=== PATIENT | male | born 1965 | race Caucasian/White ===

== ENCOUNTER 2018-11-19 19:41 | Observation (INO) | payer OTHER ==
[~2018-11-19] VITALS: Ht 180.3 cm; Wt 79.4 kg
[~2018-11-19 19:41] MED LIST: LITH300C PO; LITH300ER PO; LORA2 PO
[2018-11-19 21:10] LABS: BASOPHILS ABSOLUTE AUTO 0.09 K/mm3 (0.00-0.23); BASOPHILS PERCENT AUTO 1 % (0-2); EOSINOPHILS ABSOLUTE AUTO 0.14 K/mm3 (0.00-0.68); EOSINOPHILS PERCENT AUTO 1 % (0-6); Hematocrit 46.7 % (37.0-53.0); Hemoglobin 15.6 g/dL (13.5-17.5); IMMATURE GRAN ABSOLUTE AUTO 0.04 K/mm3 (0.00-0.10); IMMATURE GRAN PERCENT AUTO 0 % (0-1); LYMPHOCYTES PERCENT AUTO 24 % (21-46); MONOCYTES ABSOLUTE AUTO 1.03 K/mm3 (0.16-1.47); MONOCYTES PERCENT AUTO 10 % (4-13); Mean Corpuscular HGB 30.5 pg (26.0-34.0); Mean Corpuscular HGB Conc 33.4 g/dL (31.5-36.5); Mean Corpuscular Volume 91 fL (80-100); Mean Platelet Volume 10.7 fL (9.1-12.4); NEUTROPHILS ABSOLUTE AUTO 6.87 K/mm3 (1.96-9.15); NEUTROPHILS PERCENT AUTO 64 % (41-73); Platelet Count 231 K/mm3 (150-400); RDW Coefficient Variation 12.3 % (11.7-14.2); RDW Standard Deviation 41.4 fL (35.1-46.3); Red Blood Cell Count 5.12 M/mm3 (4.30-5.90); White Blood Cell Count 10.77 K/mm3 (4.00-11.30)
[2018-11-19 21:13] LABS: Source, Urine Voided
[2018-11-19 21:16] LABS: Bilirubin, Urine Neg (Neg); Blood, Urine Neg (Neg); Glucose Qualitative, Urine Neg (Neg); Ketones, Urine 1+ (Neg); Leukocyte Esterase, Urine 1+ (Neg); Nitrite, Urine Neg (Neg); Protein, Urine Neg (Neg); Specific Gravity, Urine 1.025 (1.003-1.022); Urobilinogen, Urine 1+ (Normal)
[2018-11-19 21:18] LABS: Appearance, Urine Clear (Clear); Color, Urine Yellow (P-Yellow)
[2018-11-19 21:21] LABS: Red Blood Cells, Urine 0-2 /hpf (0-2)
[2018-11-19 21:22] LABS: Bacteria Many /hpf; Mucus Light (0-Heavy); Squamous Epithelial Cells Not Seen /hpf (Few)
[2018-11-19 21:27] LABS: Alanine Aminotransfer (ALT/SGP 36 U/L (12-78); Albumin, Blood 3.7 g/dL (3.4-5.0); Albumin/Globulin Ratio 1.1 (0.8-1.8); Alk Phos 99 U/L (50-136); Anion Gap 6 mmol/L (6-16); Aspartate Aminotrans (AST/SGOT 19 U/L (12-37); Bilirubin, Total 0.3 mg/dL (0.1-1.0); Blood Urea Nitrogen 17 mg/dL (8-24); CO2, Blood 28 mmol/L (21-32); Calcium, Blood 8.3 mg/dL (8.5-10.1); Chloride, Blood 105 mmol/L (98-108); Creatinine, Blood 0.89 mg/dL (0.60-1.20); Globulin, Blood 3.4 g/dL (2.2-4.0); Glomerular Filtration Rate >60 (60-); Glucose, Blood 82 mg/dL (70-99); Potassium, Blood 3.6 mmol/L (3.5-5.5); Salicylate 3.2 mg/dL (2.8-20.0); Sodium, Blood 139 mmol/L (136-145); Total Protein, Blood 7.1 g/dL (6.4-8.2)
[2018-11-19 21:33] LABS: Acetaminophen, Random <2.0 ug/mL (10.0-30.0); Ethanol (Alcohol), Blood, Med <3 mg/dL; Thyroid Stimulating Hormone 0.904 uIU/mL (0.360-4.800)
[2018-11-19 21:39] LABS: U Amphetamine Screen Not Detected; U Barbituate Screen Not Detected; U Benzodiazapine Screen Not Detected; U Buprenorphine Screen Not Detected; U Cannabinoids Screen DETECTED; U Cocaine Screen Not Detected; U Methadone Screen Not Detected; U Methamphetamine Screen Not Detected; U Opiates Screen Not Detected; U Oxycodone Screen Not Detected; U Phencyclidine Screen Not Detected; U Propoxyphene Screen Not Detected
== END 2018-11-20 04:26 | disposition home or self-care (01) ==
LOC: ER 19:41 → EOR 19:42
PROVIDERS: ADMIT Emergency Medicine
DX: R45.851 Suicidal ideations (principal); F32.89 Other specified depressive episodes; F17.210 Nicotine dependence, cigarettes, uncomplicated; F12.10 Cannabis abuse, uncomplicated; F10.10 Alcohol abuse, uncomplicated; Z59.0 Homelessness; Z79.899 Other long term (current) drug therapy
CPT/HCPCS: 36415; 71046; 80053; 81001; 84443; 85025; 87086; 87147; 93005; 93010; 99285-25; G0378; G0480; Q3014

== ENCOUNTER 2019-03-19 22:57 | Emergency (ER) | payer OTHER ==
[~2019-03-19] VITALS: Ht 177.8 cm; Wt 78.9 kg
[2019-03-20] MEDS ORDERED: Cleocin HCl150 MG PO (00:05)
[2019-03-21] MEDS ORDERED: ONDA4ODT MM (13:49)
[2019-03-21] MEDS ORDERED: Florastor250 MG PO (13:49)
[2019-03-21] MEDS ORDERED: ACET325 PO (13:49)
[2019-03-21] MEDS ORDERED: CLIN300 PO (13:49)
== END 2019-03-20 01:34 | disposition home or self-care (01) ==
LOC: ER 22:57
DX: L02.416 Cutaneous abscess of left lower limb (principal); L03.116 Cellulitis of left lower limb; F17.200 Nicotine dependence, unspecified, uncomplicated
CPT/HCPCS: 96365; 99282-25

== ENCOUNTER 2019-03-27 00:41 | Emergency (ER) | payer OTHER ==
[~2019-03-27] VITALS: Ht 177.8 cm; Wt 74.8 kg
[~2019-03-27 00:41] MED LIST changes: +ACET325 PO; +CLIN300 PO; +Cleocin HCl150 MG PO; +Florastor250 MG PO; +ONDA4ODT MM
== END 2019-03-27 03:01 | disposition home or self-care (01) ==
LOC: ER 00:41
DX: S69.92XA Unspecified injury of left wrist, hand and finger(s), initial encounter (principal); F17.200 Nicotine dependence, unspecified, uncomplicated; X58.XXXA Exposure to other specified factors, initial encounter
CPT/HCPCS: 73140

== ENCOUNTER 2019-06-09 12:41 | Emergency (ER) | payer OTHER ==
[~2019-06-09] VITALS: Ht 177.8 cm; Wt 81.7 kg
[2019-06-09] MEDS ORDERED: KETO10 PO (14:19)
== END 2019-06-09 14:48 | disposition home or self-care (01) ==
LOC: ER 12:41
DX: S93.402A Sprain of unspecified ligament of left ankle, initial encounter (principal); X50.9XXA Other and unspecified overexertion or strenuous movements or postures, initial encounter; F17.210 Nicotine dependence, cigarettes, uncomplicated
CPT/HCPCS: 73610; 73630; 99283-25